=== PATIENT | female | born 2000 | race Caucasian/White ===

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

== ENCOUNTER 2024-03-11 16:41 | Emergency (ER) | payer MEDICAID, SELFPAY ==
[2024-03-11 16:45] VITALS: BP 121/71; PULSE 82; RESP 12; TEMP 36.9; O2SAT 97
--- NOTE | 2024-03-11 18:52 | ED.GENADUL_ITS ---
Discharge Plan Disposition Patient Disposition: Home Condition: Stable Discharge Details Clinical Impression: Dental infection Primary Care Provider: Sara Ocampo ED Provider: Seferino Hernandez Home Meds and New Rx's Prescriptions: New amoxicillin-pot clavulanate 875-125 mg tablet 1 tab PO BID 10 Days Qty: 20 0RF chlorhexidine gluconate 0.12 % mouthwash 15 ml mucous membrane BID Qty: 1893 0RF Discharge Instructions Instructions: Amoxicillin and Clavulanate, Dental Pain ED Additional Instructions: You were seen in the emergency department for your infected dental cavities. There is no abscess visualized and you do not have the symptoms of abscess which are muffled vocal changes, excessive drooling and inability to manage her drool, neck pain, extreme pain with swallowing, inability to open or close her jaw. Please take the prescribed antibiotics sent to [facility] in [place] as directed, we started you on a tablet this evening, please use therapeutic dosing of Tylenol (acetamenophen) & Advil (ibuprofen) in an alternating fashion as follows: Take 1000mg of Tylenol every 6 hours without missing doses- that is 4 times per day. Penitentiary in between the Tylenol dosings, take 400-600mg of Advil also on a 6 hour schedule, that is also 4 times per day. The daily maximum dosing of Tylenol is 4000mg, and the daily maximum dosing of Advil is 2400mg. This is safe to do for weeks. Please note that some common cold medications & prescription pain medications may contain acetamenophen and you need to read OTC drug labels and factor that in to maximum daily dosings. Use [id number] Orajel or homeopathic remedies of topical close around areas of dental pain as needed, perform salt water gargles 3 times per day and use the prescribed antiseptic mouth rinse to help prevent further infections. You need to follow-up with a dentist for extractions or caps for these decayed teeth. Referrals: Sara Ocampo [Primary Care Provider] - Discharge Data Discharge Date/Time-TO BE ENTERED AT DEPARTURE: 03/11/24 19:09 HPI General Date/Time Provider Initiated Documentation: 03/11/24 17:37 . HPI Narrative: 23 year-old female presents to ED today by POV/ambulating with a chief complaint of dental pain - R upper and lower, diffuse dental caries with onset noted for the past few days- has dental follow-up in early Apr. Quality described as thro bbing dental pain, no radiation to trismus, vocal changes. excessive drooling, facial erythema/swelling. Severity is described as moderate. Palliating factors include nothing specific- OTC analgesics. Provoking factors include nothing specific- dental caries. Patient not anticoagulated. Related Data Home Medications ?Medication ?Instructions ?Recorded ?Confirmed amoxicillin 875 mg-potassium 1 tab PO BID 10 days #20 tabs 03/11/24 clavulanate 125 mg tablet chlorhexidine gluconate 0.12 % 15 ml mucous membrane BID #1,893 mL 03/11/24 mouthwash Previous Rx's ?Medication ?Instructions ?Recorded amoxicillin 875 mg-potassium 1 tab PO BID 10 days #20 tabs 03/11/24 clavulanate 125 mg tablet chlorhexidine gluconate 0.12 % 15 ml mucous membrane BID #1,893 mL 03/11/24 mouthwash Allergies Allergy/AdvReac Type Severity Reaction Status Date / [facility]ergy Severe Anaphylaxis Verified 03/11/24 19:09 General Stated Complaint: DentalOral EMILIANO: 4 Review of Systems All systems reviewed & are unremarkable except as noted in HPI and below Exam Narrative Exam Narrative: GENERAL APPEARANCE: Well-nourished, non-toxic, awake and alert, atraumatic, no acute distress. SKIN: Warm, pink, dry, intact, without rashes/lesions/ulcerations. HEAD: Normocephalic, atraumatic, normal hair distribution for gender/age. EYES: Normal conjunctiva, no exudates on lids/lashes. ENT: Nares patent, no circumoral cyanosis, no facial swelling, diffuse dental caries, uvula midline, no gingival abscess to visualization/palpation, no facial swelling/erythema, no trismus, no vocal changes, managing secretions wel- severe decay to R lower canine NECK: Supple, trachea midline, painless cervical ROM. LUNGS/CHEST: Non-labored respirations, normal A/P diameter, symmetrical expansion, no chest wall deformity HEART (CV/PV): No peripheral edema, no JVD. ABDOMEN: Soft, non-distended, no guarding. MSK: Normal ROM, no swelling/deformity to bilateral UEs or LEs, moving all extremities without weakness, no cyanosis, spine midline without tenderness, normal curvature. NEURO: Mental Status AAOx4 - alert to person, place, time, events No facial droop, no forehead involvement. Motor: No focal weakness - strength 5/5 in bilateral UEs and LEs, proximal and distal, symmetric. Sensory: sensation intact to light touch globally. Gait normal: patient ambulated without ataxia into ED room. PSYCH: euthymic, cooperative, pleasant, appropriate speech Course Vital Signs Vital signs: Vital Signs Temperature 36.9 C 03/11/24 16:45 Pulse 82 03/11/24 16:45 Respiratory Rate 12 03/11/24 16:45 Blood Pressure 121/71 03/11/24 16:45 Pulse Oximetry 97 03/11/24 16:45 Temperature 36.9 C 03/11/24 16:45 Temperature Source Skin 03/11/24 16:45 Pulse 82 03/11/24 16:45 Respiratory Rate 12 03/11/24 16:45 Blood Pressure 121/71 03/11/24 16:45 Blood Pressure Position Sitting 03/11/24 16:45 Pulse Oximetry 97 03/11/24 16:45 Oxygen Delivery Method Room Air 03/11/24 16:45 Oxygen Flow Rate 0 03/11/24 16:45 Pain Level 6 03/11/24 16:45 Medical Decision Making This dictation utilizes [id number] dictation software and may contain unedited grammatical errors. 23 year-old female presents to ED today by POV/ambulating with a chief complaint of dental pain - R upper and lower, diffuse dental caries with onset noted for the past few days- has dental follow-up in early Apr. Quality described as throbbing dental pain, no radiation to trismus, vocal changes. excessive drooling, facial erythema/swelling. Severity is described as moderate. Palliating factors include nothing specific- OTC analgesics. Provoking factors include nothing specific- dental caries. Patients' medical history: noncontributory. Family and social history: noncontributory. Pertinent exam findings / vital signs include diffuse dental caries, uvula midline, no gingival abscess to visualization/palpation, no facial swelling/fatou thema, no trismus, no vocal changes, managing secretions well. Differential / pathologies of concern include dental infection, not deep space neck infection, not epiglottitis. Diagnostic studies of: -None. Interventions of: -Prescription Augmentin and chlorhexidine, counseling on [id number] and homeopathic remedies for dental pain. ED Course/Assessment/Plan: 23-year-old otherwise healthy female presents with simple diffuse dental decay and likely early dental infection without visible or palpable gingival abscess near the right lower canine which is the most decayed tooth, no signs of deep space infection or airway compromise, counseled on antibiotics and definitive follow-up with dentist, provided chlorhexidine mouth rinse to prevent further infections while she awaits follow-up, counseled on therapeutic dosing Tylenol and ibuprofen and homeopathic remedies to relieve symptoms of dental pain. Findings not consistent with deep space infection, airway compromise. Disposition of dental infection. Patient verbalized understanding of the plan and return to ED criteria and engaged in shared decision making. Medical Records Medical records reviewed: Yes I reviewed the patient's medical records. Quality:[facility] Related Social Needs: No Data to Display PFSH All Active Problems (Updated 03/11/24 @ 19:00 by REMI Oro) Dental infection (Acute) Chronic headache (Chronic) Migraine aura without headache (Chronic) Migraine headache without aura (Chronic) Migraine headache with aura (Chronic) Depression (Chronic) Medical History (Updated 03/11/24 @ 19:00 by REMI Oro) Asthma Seasonal allergies Warts of foot Anxiety Paresthesias Abdominal pain Contraception Family History Mother Headache Cerebral palsy Brother Headache Social History Smoking/Tobacco Use Status: Never Smoking risk assessment performed?: Yes Alcohol Intake: never Drug use: Never Substance use type: does not use Household members: family 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
[2024-03-11 19:09] VITALS: BP 121/71; BP 129/67; PULSE 74; PULSE 82; RESP 12; RESP 14; TEMP 36.9; O2SAT 97; O2SAT 98
[2024-03-11] MEDS: Amoxicillin 875/Clav. 125 TAB PO (19:09)
== END 2024-03-11 19:09 | disposition home or self-care (01) ==
PROVIDERS: Emergency Provider Physician Assistant; PCP Nurse Practitioner Family
DX: K04.7 Periapical abscess without sinus (principal); K02.9 Dental caries, unspecified
CPT/HCPCS: 99283